=== PATIENT | female | born 1955 | race Caucasian/White ===

== ENCOUNTER 2019-09-08 08:51 | Emergency (ER) | payer OTHER, SELFPAY ==
--- NOTE | ~2019-09-08 | XR_ITS ---
EXAMINATION: XR chest 2V DATE: 09/08/2019 09:40 INDICATION: Cough. TECHNIQUE: Frontal and lateral views of the chest were obtained on 3 radiographs. COMPARISON: Chest 2 views 10/20/2014 FINDINGS: The chest demonstrates clear lungs without pneumonia, pleural effusion, or pneumothorax. Th e heart size is normal. IMPRESSION: 1. No acute cardiopulmonary disease. Reviewed, dictated and finalized at location A. MASTER
[2019-09-08 09:12] VITALS: BP 164/74; PULSE 74; RESP 20; TEMP 36.3; O2SAT 95
--- NOTE | 2019-09-08 09:36 | ED.URI ---
HPI - URI/Sore Throat General Chief Complaint: Upper Respiratory Infection Stated Complaint: Cold/Flu symptoms Time Seen by Provider: 09/08/19 09:41 Source: patient Related Data Home Medications Medication Instructions Recorded Confirmed aspirin [Aspir-81] 81 mg PO DAILY 09/08/19 09/08/19 celecoxib mg 09/08/19 hydroxyzine HCl 25 mg PO QID PRN 09/08/19 09/08/19 lisinopril-hydrochlorothiazide tablet 09/08/19 metoprolol succinate PO 09/08/19 potassium chloride meq 09/08/19 venlafaxine mg PO 09/08/19 Allergies Allergy/AdvReac Type Severity Reaction Status Date / Time codeine AdvReac Unknown Nausea and Verified 09/08/19 09:22 Vomiting morphine AdvReac Unknown Nausea and Verified 09/08/19 09:22 Vomiting PMFSH Comments At time of signature, agree with nursing past medical, surgical, social and family history. There is no relevant family history pertinent to the presenting complaint Course Vital Signs Vital signs: Vital Signs Temperature 36.3 C L 09/08/19 09:12 Pulse Rate 74 09/08/19 09:12 Respiratory Rate 20 09/08/19 09:12 Blood Pressure 164/74 H 09/08/19 09:12 Pulse Oximetry 95 09/08/19 09:12 Temperature 36.3 C L 09/08/19 09:12 Pulse Rate 74 09/08/19 09:12 Respiratory Rate 20 09/08/19 09:12 Blood Pressure 164/74 H 09/08/19 09:12 Pulse Oximetry 95 09/08/19 09:12 MDM - URI/Sore Throat Differential Diagnosis Differential diagnosis: Likely upper respiratory infection, croup, otitis media, sinusitis, viral infection, bronchitis, influenza, pharyngitis and other Critical Care Time Critical Care Time Critical Care Time: No Discharge Plan Discharge Clinical Impression: Viral infection, Bronchitis Upper respiratory infection Qualifiers: URI type: unspecified viral URI Qualified Code(s): J06.9 - Acute upper respiratory infection, unspecified Patient Disposition: Home, Self-Care Condition: Stable Instructions: Antibiotic Form Prescriptions: New benzonatate [Tessalon Perles] 100 mg capsule 100 mg PO TID 5 Days Qty: 15 RF: 0 methylprednisolone [Medrol (Caio)] 4 mg tablets,dose pack See Rx Instructions .ROUTE .COMPLEX Qty: 21 RF: 0 azithromycin 250 mg tablet See Rx Instructions .ROUTE .COMPLEX Qty: 6 RF: 0 albuterol sulfate 2.5 mg /3 mL (0.083 %) solution for nebulization 2.5 mg INHALATION Q4H PRN (Reason: shortness of breath or wheezing) Qty: 75 RF: 0 No Action celecoxib 200 mg capsule RF: 0 potassium chloride 10 mEq capsule, extended release RF: 0 metoprolol succinate 100 mg tablet extended release 24 hr PO RF: 0 aspirin [Aspir-81] 81 mg Tablet,Delayed Release (Dr/Ec) 81 mg PO DAILY RF: 0 lisinopril-hydrochlorothiazide 20-25 mg tablet RF: 0 hydroxyzine HCl 25 mg Tablet 25 mg PO QID PRN (Reason: Itching) RF: 0 venlafaxine 225 mg tablet extended release 24hr PO RF: 0 Follow-up/Referrals: Kelly,Ashu Moran MD [Primary Care Provider] - Time of Disposition: 10:00
--- NOTE | 2019-09-08 09:39 | ED.URI ---
HPI - URI/Sore Throat General Chief Complaint: Upper Respiratory Infection Stated Complaint: Cold/Flu symptoms Time Seen by Provider: 09/08/19 09:41 Source: patient History of Present Illness HPI Narrative: Patient here with cough this been going on for the past 6 weeks. Since May 2019. Patient has been evaluated by her primary care provider and given Keflex and and Hailer. Patient states she has had not much improvement since then and continues to have a dry nonproductive cough. No shortness of breath no chest pain normally healthy individual non-smoker . Patient states she saw her primary care provider 2 weeks ago and was given Keflex which she has finished. Patient states she does have a history of asthma and uses her inhaler as prescribed. Patient reports taking Zyrtec daily and using her inhaler. Patient states that the Z-Caio does only thing that would help her get over this upper respiratory infection. Patient states she has taken them in the past and does fine with a Z-Caio and gets better faster. Related Data Home Medications Medication Instructions Recorded Confirmed aspirin [Aspir-81] 81 mg PO DAILY 09/08/19 09/08/19 celecoxib mg 09/08/19 hydroxyzine HCl 25 mg PO QID PRN 09/08/19 09/08/19 lisinopril-hydrochlorothiazide tablet 09/08/19 metoprolol succinate PO 09/08/19 potassium chloride meq 09/08/19 venlafaxine mg PO 09/08/19 Allergies Allergy/AdvReac Type Severity Reaction Status Date / Time codeine AdvReac Unknown Nausea and Verified 09/08/19 09:22 Vomiting morphine AdvReac Unknown Nausea and Verified 09/08/19 09:22 Vomiting Review of Systems Review of Systems: Narrative: CONSTITUTIONAL: Denies fever, chills, or sweats. EYES: Denies visual changes, redness, or discharge. ENT: Denies , congestion, sore throat, or otalgia. CARDIOVASCULAR: Denies chest pain, palpitations, or edema. RESPIRATORY: Denies dyspnea. Nonproductive cough -If you have any worsening of symptoms or any other concerns please go to the ED immediately. GASTROINTESTINAL: Denies abdominal pain, nausea, vomiting, or diarrhea. GENITOURINARY: Denies dysuria or hematuria. SKIN: Denies rash or itching. MUSCULOSKELETAL: Denies back pain, joint pain, or myalgia. NEUROLOGIC: Denies headache, numbness, or weakness. PSYCHIATRIC: Denies anxiety or depression. Exam Narrative: Exam Narrative: The patient is a well-developed, well-nourished in no acute distress. SKIN: Skin is warm and dry without erythema, swelling or exudate. There is good turgor. No tenting. HEAD: Atraumatic. Normocephalic. No temporal or scalp tenderness. EYES: Moist and bright. Sclera and conjunctivae normal. No discharge. PERRLA. Extraocular motions intact. Gross visual acuity intact. EARS: Pinna is normal shape and contour. Clear external auditory canals. TM pearly saravia with good cone of light, no erythema or suppuration. Bilateral cerumen noted no gross hearing deficit. NOSE: pink, moist mucosa with good air movement. Clear rhinorrhea without nasal flaring. Septum midline. Mouth: moist mucous membranes. THROAT; mild erythema noted to posterior oropharynx with moderate postnasal drainage. Without exudate or ulceration.. Uvula midline. Normal movement of soft palate. NECK: Supple and nontender with full range of motion without discomfort. No meningeal signs. LUNGS: Equal and bilateral breath sounds without wheezes, rales or rhonchi. CHEST: The chest wall is without retractions or use of accessory muscles. HEART: Has a regular rate and rhythm without murmur, gallops, click or rub. ABDOMEN: Soft, nontender with positive active bowel sounds. No rebound tenderness. EXTREMITIES: Without cyanosis, clubbing or edema. Equal 2+ distal pulses and 2 second capillary refill noted. NEUROLOGIC: alert, active, . The patient moves all extremities with normal muscle strength. Normal muscle tone is noted. Normal coordination is noted. NO focal neurological findings noted. Course Vital
== END 2019-09-08 10:05 | disposition home or self-care (01) ==
PROVIDERS: Emergency Provider Nurse Practitioner Family; PCP Internal Medicine
DX: B34.9 Viral infection, unspecified (principal); J40 Bronchitis, not specified as acute or chronic; J06.9 Acute upper respiratory infection, unspecified; J45.909 Unspecified asthma, uncomplicated
CPT/HCPCS: 71046; 99213; G0463

== ENCOUNTER 2019-10-27 12:50 | Emergency (ER) | payer OTHER, SELFPAY ==
--- NOTE | ~2019-10-27 | XR_ITS ---
EXAMINATION: XR chest 2V EXAM DATE: 10/27/2019 13:45 INDICATION: COVID 19 symptoms. Chest tightness, shortness of breath. TECHNIQUE: Frontal and lateral projections of the chest obtained and reviewed. Comparison is made to prior examination from 09/08/2019. FINDINGS: The lungs are clear. There are no pleural effusions. The cardiomediastinal silhouette is within normal limits. There is no pneumothorax suspected. The bones and soft tissues are unremarkab le. Azygos fissure. IMPRESSION: No acute cardiopulmonary findings. Reviewed, dictated and finalized at location A.
[2019-10-27 12:56] VITALS: BP 192/82; PULSE 78; RESP 20; TEMP 36.6; O2SAT 100
--- NOTE | 2019-10-27 13:19 | ED.GENADULT ---
HPI - General Adult General Chief complaint: Upper Respiratory Infection Stated complaint: Breathing trouble, coughing Time Seen by Provider: 10/27/19 13:19 Source: patient and RN notes reviewed Mode of arrival: ambulatory Limitations: no limitations History of Present Illness HPI narrative: 63-year-old female presents with complains of dry cough and intermittent shortness of breath for the past 1.5 weeks. Albuterol treatment (last approximately 1.5 hours prior to this visit) and Spiriva daily with some relief. Symptoms increased over the last 48 hours with lung heaviness. History of Asthma. Patient stop taking her blood pressure medications in September due to the Coronavirus. Negra says the news said that her history could make her prone to getting the virus. Dry cough without chest congestion. No rhinorrhea or nasal congestion. Denies sore throat. No high fevers, drooling, neck or throat swelling. No chest pain, wheezing, or shortness of breath. Denies diarrhea, nausea, vomiting, and abdominal pain. Tolerating liquids well. Remains active. Denies headaches, weakness, fatigue, myalgia. Denies recent traveling. Denies concern for COVID-19 or exposures been home since [id number] order except for essential household needs and return home. Some parts of this dictation were generated by voice recognition software and may contain typographical and/or grammatical inaccuracies. Related Data Home Medications Medication Instructions Recorded Confirmed aspirin [Aspir-81] 81 mg PO DAILY 09/08/19 09/08/19 celecoxib mg 09/08/19 hydroxyzine HCl 25 mg PO QID PRN 09/08/19 09/08/19 lisinopril-hydrochlorothiazide tablet 09/08/19 metoprolol succinate PO 09/08/19 potassium chloride meq 09/08/19 venlafaxine mg PO 09/08/19 Allergies Allergy/AdvReac Type Severity Reaction Status Date / Time codeine AdvReac Unknown Nausea and Verified 09/08/19 09:22 Vomiting morphine AdvReac Unknown Nausea and Verified 09/08/19 09:22 Vomiting Review of Systems Review of Systems: Narrative: CONSTITUTIONAL: Denies fever. Complains of sweats, chills, fatigue. EYES: Denies visual changes, redness, discharge. ENT: Complains of congestion. Denies rhinorrhea, sore throat, otalgia. CARDIOVASCULAR: Denies chest pain, palpitations, edema. RESPIRATORY: Denies chest congestion,wheezing. Complains of dry cough, intermittent dyspnea. GASTROINTESTINAL: Denies abdominal pain, nausea, vomiting, diarrhea. GENITOURINARY: Denies dysuria, hematuria, abnormal discharge. SKIN: Denies rash or itching. MUSCULOSKELETAL: Denies acute back pain, joint pain, or myalgia. NEUROLOGIC: Denies numbness or focal weakness. PSYCHIATRIC: Denies anxiety or depression. All other systems reviewed are negative, except as documented in HPI and below. [facility] Past Medical History Medical History (Updated 10/28/19 @ 16:20 by WAGNER Joe) Asthma Hypertension Menopause Myocardial infarction Surgical History Surgical History (Updated 10/28/19 @ 16:17 by WAGNER Joe) History of cardiac radiofrequency ablation History of cholecystectomy History of hysterectomy Family History Family History (Updated 10/28/19 @ 16:17 by WAGNER Joe) Mother Hypertension Social History Social History (Updated 10/28/19 @ 16:19 by WAGNER Joe) Smoking status: Never smoker Tobacco type: cigarettes Second hand tobacco smoke exposure: No Substance use: never Living arrangements: with family Gender identity (if verbalized by the patient): Female Comments At time of signature, agree with nurse past medical, surgical, social, and family history. There is no relevant family history pertinent to the presenting complaint. Exam Narrative: Exam Narrative: GENERAL: This is a well-nourished, well-developed patient, in no apparent distress. Talks in full sentences and ambulates with steady gait without dyspnea. HEAD: normo
[2019-10-27] MEDS: IPRATROPIUM BR 0.02% INH SOLN 0.5 MG/2.5 ML VIAL INHALATION (13:46)
[2019-10-27] MEDS: ALBUTEROL SULFATE NEB 2.5 MG/3 ML INH INHALATION (13:47)
== END 2019-10-27 14:51 | disposition home or self-care (01) ==
PROVIDERS: Emergency Provider Nurse Practitioner Family; PCP Internal Medicine
DX: J45.901 Unspecified asthma with (acute) exacerbation (principal); I10 Essential (primary) hypertension; I25.2 Old myocardial infarction
CPT/HCPCS: 71046; 94640; 99213; G0463

== ENCOUNTER 2021-01-22 12:18 | Emergency (ER) | payer MEDICARE, SELFPAY ==
--- NOTE | ~2021-01-22 | XR_ITS ---
EXAMINATION: XR chest 2V EXAM DATE: 01/22/2021 13:43 INDICATION: Shortness of breath and asthma. TECHNIQUE: Frontal and lateral projections of the chest obtained and reviewed. Comparison is made to prior examination from 10/27/2019. FINDINGS: Azygos fissure. The lungs are clear. There are no pleural effusions. The cardiomediastin al silhouette is within normal limits. There is no pneumothorax suspected. Mild lower thoracic dext roscoliosis. IMPRESSION: No acute cardiopulmonary findings. Reviewed, dictated and finalized at location B.
[2021-01-22 12:29] VITALS: BP 157/75; PULSE 94; RESP 20; TEMP 36.6; O2SAT 98
--- NOTE | 2021-01-22 13:32 | ED.SOB ---
HPI - SOB/Dyspnea General Chief Complaint: Shortness of Breath/Dyspnea Stated Complaint: Shortness of breath Time Seen by Provider: 01/22/21 13:10 Source: patient and RN notes reviewed Mode of arrival: ambulatory Limitations: no limitations History of Present Illness HPI Narrative: 65 year old female who presents ambulatory to [facility] care with complaints of one day history of shortness of breath, tightness to chest with taking a deep breath, bilateral ear pressure, swelling in throat, post nasal drainage and dry cough. Patient states that she has used her Albuterol inhaler but with no improvement in her breathing. Patient denies any chest pain, nausea, diaphoresis, or any pain to arm, jaw or back. Patient states that she has history of asthma, pneumonia and bronchitis.Patient states that she has not used nebulizer or Spiriva inhaler. Patient has not had COVID vaccinations. MD elicited complaint: shortness of breath Pertinent past history: asthma, pneumonia and other (bronchitis) Onset (ago): day(s) (1) Timing: constant Severity: moderate Exacerbating factors: exertion and inspiration Relieving factors: nothing Known history of: asthma Associated symptoms: cough and other (ear pressure, post nasal drainage, states throat feels swollen) Treatment prior to arrival: other (inhaler) Related Data Home oxygen amount: none Home Medications Medication Instructions Recorded Confirmed celecoxib 400 mg PO DAILY 09/08/19 01/22/21 hydroxyzine HCl 25 mg PO QID PRN 09/08/19 01/22/21 lisinopril-hydrochlorothiazide 1 tablet PO DAILY 09/08/19 01/22/21 metoprolol succinate 100 mg PO DAILY 09/08/19 01/22/21 potassium chloride 10 meq PO BID 09/08/19 01/22/21 aspirin [Aspirin Childrens] 81 mg PO DAILY 01/22/21 01/22/21 ergocalciferol (vitamin D2) 50,000 unit PO WEEKLY 01/22/21 01/22/21 [Vitamin D2] phentermine 30 mg PO DAILY 01/22/21 01/22/21 tiotropium bromide [Spiriva with 1 cap INHALATION DAILY PRN 01/22/21 01/22/21 HandiHaler] Allergies Allergy/AdvReac Type Severity Reaction Status Date / Time codeine AdvReac Unknown Nausea and Verified 01/22/21 13:26 Vomiting morphine AdvReac Unknown Nausea and Verified 01/22/21 13:26 Vomiting Review of Systems Review of Systems: Narrative: CONSTITUTIONAL: Denies fever, chills, or sweats. EYES: Denies visual changes, redness, or discharge. ENT: Positive rhinorrhea, congestion, sore throat, bilateral ear pressure CARDIOVASCULAR: Denies chest pain, palpitations, or edema. RESPIRATORY: Positive for cough or dyspnea. GASTROINTESTINAL: Denies abdominal pain, nausea, vomiting, or diarrhea. GENITOURINARY: Denies dysuria or hematuria. SKIN: Denies rash or itching. MUSCULOSKELETAL: Denies back pain, joint pain, or myalgia. NEUROLOGIC: Denies headache, numbness, or weakness. PSYCHIATRIC: Positive anxiety or depression. All systems reviewed & are unremarkable except as noted in HPI and below PMFSH Past Medical History Medical History (Updated 01/23/21 @ 10:53 by Nica Marrero NP) Anxiety and depression Arthritis Asthma Bronchitis Hypertension Menopause Myocardial infarction Sleep apnea Surgical History Surgical History History of cardiac radiofrequency ablation History of cholecystectomy History of hysterectomy Family History Family History (Updated 01/23/21 @ 10:02 by Nica Marrero NP) Mother Hypertension Acute myocardial infarction Heart disease COPD (chronic obstructive pulmonary disease) Father COPD (chronic obstructive pulmonary disease) Social History Social History (Updated 01/23/21 @ 10:00 by Nica Marrero NP) Smoking status: Never smoker Tobacco type: cigarettes Second hand tobacco smoke exposure: No Alcohol intake: never Substance use: never Living arrangements: with family Gender identity (if verbalized by the patient): Female Comments At time of signature, agree with gerard
[2021-01-22 14:00] VITALS: PULSE 90; RESP 20; O2SAT 98
[2021-01-22] MEDS: IPRATROPIUM BR 0.02% INH SOLN 0.5 MG/2.5 ML VIAL INHALATION (14:00)
[2021-01-22] MEDS: ALBUTEROL SULFATE NEB 2.5 MG/3 ML INH INHALATION (14:00)
[2021-01-22 14:30] VITALS: PULSE 96; RESP 20; O2SAT 98
[2021-01-23 19:11] LABS: SARS-CoV-2 RNA PCR Negative
== END 2021-01-22 14:45 | disposition home or self-care (01) ==
PROVIDERS: Emergency Provider Registered Nurse; PCP Internal Medicine
DX: J06.9 Acute upper respiratory infection, unspecified (principal); J45.41 Moderate persistent asthma with (acute) exacerbation; Z20.822 Contact with and (suspected) exposure to COVID-19; F41.9 Anxiety disorder, unspecified; M19.90 Unspecified osteoarthritis, unspecified site; I10 Essential (primary) hypertension; I25.2 Old myocardial infarction; G47.30 Sleep apnea, unspecified
CPT/HCPCS: 71046; 87081; 87426; 87804; 87880; 94640; 99213; C9803; G0463; U0003; U0005

== ENCOUNTER 2021-11-10 11:19 | Emergency (ER) | payer MEDICARE, SELFPAY ==
[2021-11-10 11:20] VITALS: BP 148/77; PULSE 57; RESP 20; TEMP 36.5; O2SAT 98
--- NOTE | 2021-11-10 11:25 | ED.URI ---
HPI - URI/Sore Throat General Chief Complaint: Upper Respiratory Infection Stated Complaint: SOre Throat/Ear Pain Time Seen by Provider: 11/10/21 11:19 Source: patient, family and RN notes reviewed History of Present Illness HPI Narrative: Patient is 65-year-old female presents the urgent care with complaints of sore throat and ear pain that started today. Patient also reports of some congestion and drainage. Patient has not taken anything [id number] for her symptoms. Denies of any fevers or known exposures. No other acute complaints. No acute distress noted. Patient aware of the plan of care. Some parts of this dictation were generated by voice recognition software and may contain typographical and/or grammatical inaccuracies. Related Data Home Medications Medication Instructions Recorded Confirmed celecoxib 400 mg PO DAILY 09/08/19 11/10/21 lisinopril-hydrochlorothiazide 1 tablet PO DAILY 09/08/19 11/10/21 metoprolol succinate 100 mg PO DAILY 09/08/19 11/10/21 potassium chloride 10 meq PO BID 09/08/19 11/10/21 tiotropium bromide [Spiriva with 1 cap INHALATION DAILY PRN 01/22/21 11/10/21 HandiHaler] aspirin [Aspirin Low Dose] 81 mg PO DAILY 11/10/21 11/10/21 cetirizine 10 mg PO DAILY 11/10/21 11/10/21 ergocalciferol (vitamin D2) 1,250 mcg PO WEEKLY 11/10/21 11/10/21 Allergies Allergy/AdvReac Type Severity Reaction Status Date / Time codeine AdvReac Unknown Nausea and Verified 11/10/21 11:52 Vomiting morphine AdvReac Unknown Nausea and Verified 11/10/21 11:52 Vomiting [facility] Past Medical History Medical History (Updated 11/10/21 @ 11:59 by WAGNER Garcia) Anxiety and depression Arthritis Asthma Bronchitis Hypertension Menopause Myocardial infarction Sleep apnea Surgical History Surgical History History of cardiac radiofrequency ablation History of cholecystectomy History of hysterectomy Family History Family History (Updated 01/23/21 @ 10:02 by Nica Marrero NP) Mother Hypertension Acute myocardial infarction Heart disease COPD (chronic obstructive pulmonary disease) Father COPD (chronic obstructive pulmonary disease) Social History Social History (Updated 01/23/21 @ 10:00 by Nica Marrero NP) Smoking status: Never smoker Tobacco type: cigarettes Second hand tobacco smoke exposure: No Alcohol intake: never Substance use: never Gender identity (if verbalized by the patient): Female Exam Narrative: GENERAL: This is a well-nourished, well-developed patient, in no apparent distress. HEAD: normocephalic, atraumatic. EYES: PERRL. Sclera clear/white. Vision is grossly intact. EARS: External ears normal, auditory canals clear and without drainage, TMs normal without perforation. Hearing grossly intact. NOSE: External nose normal with no obvious nasal discharge, nares without redness, clear to yellow rhinorrhea. THROAT: Mucous membranes moist reviewed moderate postnasal drainage with mild erythema NECK: Neck supple, non-tender without lymphadenopathy CARDIOVASCULAR: Regular rate and rhythm without murmurs, gallops, or rubs. RESPIRATORY: Clear to auscultation. Breath sounds equal bilaterally. No wheezes, rales, or rhonchi. SKIN: warm, intact with no suspicious lesions or rash, good texture and turgor. NEURO: awake, alert, and oriented to person, place and time. There were no obvious focal neurologic abnormalities. EXTREMITIES: No clubbing, cyanosis, or edema. Course Course Level of Care: Express Care Visit Vital Signs Vital signs: Vital Signs Temperature 97.7 F 11/10/21 11:20 Pulse Rate 57 L 11/10/21 11:20 Respiratory Rate 20 11/10/21 11:20 Blood Pressure 148/77 H 11/10/21 11:20 Pulse Oximetry 98 11/10/21 11:20 Temperature 97.7 F 11/10/21 11:20 Pulse Rate 57 L 11/10/21 11:20 Respiratory Rate 20 11/10/21 11:20 Blood Pressure 148/77 H 11/10/21 11:20 Pulse
== END 2021-11-10 12:02 | disposition home or self-care (01) ==
PROVIDERS: Emergency Provider Nurse Practitioner Family
DX: J00 Acute nasopharyngitis [common cold] (principal); I10 Essential (primary) hypertension; I25.2 Old myocardial infarction; Z79.82 Long term (current) use of aspirin
CPT/HCPCS: 87081; 87804; 87880; 99213; G0463

== ENCOUNTER 2022-04-06 11:54 | Emergency (ER) | payer MEDICARE, SELFPAY ==
--- NOTE | ~2022-04-06 | XR_ITS ---
EXAMINATION: XR chest 2V DATE: 04/06/2022 12:20 INDICATION: Cough. TECHNIQUE: Frontal and lateral views of the chest were obtained. COMPARISON: Chest 2 views 01/22/2021 FINDINGS: The chest demonstrates clear lungs without pneumonia, pleural effusion, or pneumothorax. Th e heart size is normal. IMPRESSION: 1. No acute cardiopulmonary disease. Reviewed, dictated and finalized at location A.
[2022-04-06 12:02] VITALS: BP 140/65; PULSE 75; RESP 16; TEMP 36.8; O2SAT 100
--- NOTE | 2022-04-06 12:04 | ED.URI ---
HPI - URI/Sore Throat General Chief Complaint: Upper Respiratory Infection Stated Complaint: cough and respiratory issues Time Seen by Provider: 04/06/22 12:04 Source: patient and RN notes reviewed History of Present Illness HPI Narrative: Patient is 66-year-old female who presents the urgent care with complaints of a cough for the last 3 weeks. Patient states that is intermittently productive and she is now experiencing some fatigue. Patient denies any chest pain but is complaining of shortness of breath. Patient states she does have a history of pneumonia but denies of any recent fevers, nausea or vomiting. Denies of any audible wheezing. Denies of any ill exposures. Patient has been taking Zyrtec [id number] for her symptoms. No other acute complaints. No acute distress noted. Patient aware of the plan of care. Some parts of this dictation were generated by voice recognition software and may contain typographical and/or grammatical inaccuracies. Related Data Home Medications Medication Instructions Recorded Confirmed metoprolol succinate 100 mg 100 mg PO DAILY 09/08/19 04/06/22 tablet,extended release 24 hr potassium chloride 10 mEq 10 meq PO BID 09/08/19 04/06/22 capsule,extended release tiotropium bromide 18 mcg capsule 1 cap inhalation DAILY PRN sob 01/22/21 04/06/22 with inhalation device (Spiriva with HandiHaler) aspirin 81 mg tablet,delayed 81 mg PO DAILY 11/10/21 04/06/22 release (Di Low Dose Aspirin) cetirizine 10 mg tablet 10 mg PO DAILY 11/10/21 04/06/22 ergocalciferol (vitamin D2) 1,250 1,250 mcg PO [id number] 11/10/21 04/06/22 mcg (50,000 unit) capsule celecoxib 400 mg capsule 400 mg PO DAILY 04/06/22 04/06/22 clotrimazole-betamethasone 1 1 applic topical BID 04/06/22 04/06/22 %-0.05 % topical cream letrozole 2.5 mg tablet 2.5 mg PO DAILY 04/06/22 04/06/22 losartan 100 1 tablet PO DAILY 04/06/22 04/06/22 mg-hydrochlorothiazide 25 mg tablet Allergies Allergy/AdvReac Type Severity Reaction Status Date / Time codeine AdvReac Unknown Nausea and Verified 04/06/22 12:18 Vomiting morphine AdvReac Unknown Nausea and Verified 04/06/22 12:18 Vomiting Review of Systems Review of Systems: CONSTITUTIONAL: Denies fever, chills, or sweats. Reports of fatigue EYES: Denies visual changes, redness, or discharge. ENT: Denies rhinorrhea, congestion, sore throat, or otalgia. CARDIOVASCULAR: Denies chest pain, palpitations, or edema. RESPIRATORY: Reports of cough and dyspnea GASTROINTESTINAL: Denies abdominal pain, nausea, vomiting, or diarrhea. GENITOURINARY: Denies dysuria or hematuria. SKIN: Denies rash or itching. MUSCULOSKELETAL: Denies back pain, joint pain, or myalgia. NEUROLOGIC: Denies headache, numbness, or weakness. All other systems reviewed are negative, except as documented in HPI. [facility] Past Medical History Medical History (Updated 04/06/22 @ 12:38 by WAGNER Garcia) Anxiety and depression Arthritis Asthma Bronchitis Hypertension Menopause Myocardial infarction Sleep apnea Surgical History Surgical History History of cardiac radiofrequency ablation History of cholecystectomy History of hysterectomy Family History Family History (Updated 01/23/21 @ 10:02 by Nica Marrero NP) Mother Hypertension Acute myocardial infarction Heart disease COPD (chronic obstructive pulmonary disease) Father COPD (chronic obstructive pulmonary disease) Social History Social History (Updated 01/23/21 @ 10:00 by Nica Marrero NP) Smoking status: Never smoker Tobacco type: cigarettes Second hand tobacco smoke exposure: No Alcohol intake: never Substance use: never Gender identity (if verbalized by the patient): Female Comments At the time of my signature, I reviewed and agree with the nursing past medical, surgical, social, and family history. There is no relevant family his
== END 2022-04-06 12:41 | disposition home or self-care (01) ==
PROVIDERS: Emergency Provider Nurse Practitioner Family; PCP Internal Medicine
DX: J06.9 Acute upper respiratory infection, unspecified (principal); R05.9 Cough, unspecified; J45.909 Unspecified asthma, uncomplicated; M19.90 Unspecified osteoarthritis, unspecified site; I10 Essential (primary) hypertension; I25.2 Old myocardial infarction; G47.30 Sleep apnea, unspecified; Z79.82 Long term (current) use of aspirin
CPT/HCPCS: 71046; 99213; G0463

== ENCOUNTER 2022-05-10 12:51 | Emergency (ER) | payer MEDICARE, SELFPAY ==
[2022-05-10 13:28] VITALS: BP 142/73; PULSE 87; RESP 18; TEMP 36.6; O2SAT 97
--- NOTE | 2022-05-10 14:21 | ED.URI ---
HPI - URI/Sore Throat General Chief Complaint: Upper Respiratory Infection Stated Complaint: lungs hurt cough headache ears Time Seen by Provider: 05/10/22 13:55 Source: patient, RN notes reviewed and old records reviewed Mode of arrival: ambulatory Limitations: no limitations History of Present Illness HPI Narrative: 66-year-old female who presents to [facility] with complaints of increased cough, some nasal congestion and drainage, and headache which started this morning. Reports that she was at a alliance party this weekend and found out that someone who was there tests positive for COVID, Patient has history of asthma and used her nebulizer this morning and her other inhaler and nasal spray because of increased symptoms. MD elicited complaint: cough Pertinent past history: asthma Onset (ago): day(s) (1) Pain scale (0-10): 6 Able to tolerate fluids by mouth: Yes Treatments prior to arrival: other (inhalers, zyrtec and also Tylenol) Related Data Home Medications Medication Instructions Recorded Confirmed metoprolol succinate 100 mg 100 mg PO DAILY 09/08/19 05/10/22 tablet,extended release 24 hr potassium chloride 10 mEq 10 meq PO BID 09/08/19 05/10/22 capsule,extended release tiotropium bromide 18 mcg capsule 1 cap inhalation DAILY PRN sob 01/22/21 05/10/22 with inhalation device (Spiriva with HandiHaler) aspirin 81 mg tablet,delayed 81 mg PO DAILY 11/10/21 05/10/22 release (Di Low Dose Aspirin) cetirizine 10 mg tablet 10 mg PO DAILY 11/10/21 05/10/22 ergocalciferol (vitamin D2) 1,250 1,250 mcg PO [id number] 11/10/21 05/10/22 mcg (50,000 unit) capsule celecoxib 400 mg capsule 400 mg PO DAILY 04/06/22 05/10/22 clotrimazole-betamethasone 1 1 applic topical BID 04/06/22 05/10/22 %-0.05 % topical cream letrozole 2.5 mg tablet 2.5 mg PO DAILY 04/06/22 05/10/22 losartan 100 1 tablet PO DAILY 04/06/22 05/10/22 mg-hydrochlorothiazide 25 mg tablet Allergies Allergy/AdvReac Type Severity Reaction Status Date / Time codeine AdvReac Unknown Nausea and Verified 05/10/22 13:36 Vomiting morphine AdvReac Unknown Nausea and Verified 05/10/22 13:36 Vomiting Review of Systems Review of Systems: CONSTITUTIONAL: Reports malaise, no chills, sweats, or fever. EYES: Denies visual changes, redness, or discharge. ENT: Reports rhinorrhea, congestion, sinus pain, otalgia no sore throat. CARDIOVASCULAR: Denies chest pain, palpitations, or edema. RESPIRATORY: Reports cough.? Denies acute dyspnea. GASTROINTESTINAL: Denies abdominal pain, nausea, vomiting, diarrhea SKIN: Denies rash or itching. MUSCULOSKELETAL: Denies myalgia. NEUROLOGIC:Reports headache. All systems reviewed & are unremarkable except as noted in HPI and below PMFSH Past Medical History Medical History (Updated 05/11/22 @ 00:00 by Veronica Gutierrez) Anxiety and depression Arthritis Asthma Bronchitis Hypertension Menopause Myocardial infarction Sleep apnea Surgical History Surgical History History of cardiac radiofrequency ablation History of cholecystectomy History of hysterectomy Family History Family History (Updated 01/23/21 @ 10:02 by Nica Marrero NP) Mother Hypertension Acute myocardial infarction Heart disease COPD (chronic obstructive pulmonary disease) Father COPD (chronic obstructive pulmonary disease) Social History Social History (Updated 01/23/21 @ 10:00 by Nica Marrero NP) Smoking status: Never smoker Tobacco type: cigarettes Second hand tobacco smoke exposure: No Alcohol intake: never Substance use: never Gender identity (if verbalized by the patient): Female Comments At time of signature, agree with nursing past medical, surgical, social and family history. There is no relevant family history pertinent to the presenting complaint Exam Narrative: GENERAL: Well-appearing, well-nourished, and in no acute distre
--- NOTE | 2022-05-10 15:09 | ED.URI ---
HPI - URI/Sore Throat General Chief Complaint: Upper Respiratory Infection Stated Complaint: lungs hurt cough headache ears Time Seen by Provider: 05/10/22 13:55 Source: patient, RN notes reviewed and old records reviewed Mode of arrival: ambulatory Limitations: no limitations Related Data Home Medications Medication Instructions Recorded Confirmed metoprolol succinate 100 mg 100 mg PO DAILY 09/08/19 05/10/22 tablet,extended release 24 hr potassium chloride 10 mEq 10 meq PO BID 09/08/19 05/10/22 capsule,extended release tiotropium bromide 18 mcg capsule 1 cap inhalation DAILY PRN sob 01/22/21 05/10/22 with inhalation device (Spiriva with HandiHaler) aspirin 81 mg tablet,delayed 81 mg PO DAILY 11/10/21 05/10/22 release (Di Low Dose Aspirin) cetirizine 10 mg tablet 10 mg PO DAILY 11/10/21 05/10/22 ergocalciferol (vitamin D2) 1,250 1,250 mcg PO [id number] 11/10/21 05/10/22 mcg (50,000 unit) capsule celecoxib 400 mg capsule 400 mg PO DAILY 04/06/22 05/10/22 clotrimazole-betamethasone 1 1 applic topical BID 04/06/22 05/10/22 %-0.05 % topical cream letrozole 2.5 mg tablet 2.5 mg PO DAILY 04/06/22 05/10/22 losartan 100 1 tablet PO DAILY 04/06/22 05/10/22 mg-hydrochlorothiazide 25 mg tablet Allergies Allergy/AdvReac Type Severity Reaction Status Date / Time codeine AdvReac Unknown Nausea and Verified 05/10/22 13:36 Vomiting morphine AdvReac Unknown Nausea and Verified 05/10/22 13:36 Vomiting [facility] Past Medical History Medical History (Updated 05/11/22 @ 00:00 by Veronica Gutierrez) Anxiety and depression Arthritis Asthma Bronchitis Hypertension Menopause Myocardial infarction Sleep apnea Surgical History Surgical History History of cardiac radiofrequency ablation History of cholecystectomy History of hysterectomy Family History Family History (Updated 01/23/21 @ 10:02 by Nica Marrero NP) Mother Hypertension Acute myocardial infarction Heart disease COPD (chronic obstructive pulmonary disease) Father COPD (chronic obstructive pulmonary disease) Social History Social History (Updated 01/23/21 @ 10:00 by Nica Marrero NP) Smoking status: Never smoker Tobacco type: cigarettes Second hand tobacco smoke exposure: No Alcohol intake: never Substance use: never Gender identity (if verbalized by the patient): Female Course Vital Signs Vital signs: Vital Signs Temperature 36.6 C 05/10/22 13:28 Pulse Rate 87 05/10/22 13:28 Respiratory Rate 18 05/10/22 13:28 Blood Pressure 142/73 H 05/10/22 13:28 Pulse Oximetry 97 05/10/22 13:28 Oxygen Delivery Room Air 05/10/22 13:28 Temperature 36.6 C 05/10/22 13:28 Pulse Rate 87 05/10/22 13:28 Respiratory Rate 18 05/10/22 13:28 Blood Pressure 142/73 H 05/10/22 13:28 Pulse Oximetry 97 05/10/22 13:28 Oxygen Delivery Room Air 05/10/22 13:28 MDM - URI/Sore Throat Lab Data Labs: Lab Results 05/10/22 Range/Units Unknown POC SARS CoV-2 Ag Negative (Negative) Discharge Plan Discharge Clinical Impression: Upper respiratory infection, Cough Patient Disposition: Home, Self-Care Condition: Stable Instructions: Antibiotic Form Additional Instructions: Increase fluids especially juices and water [id number] cough and cold medicine of your choice for your symptoms Tylenol or ibuprofen for any fever or pain continue Zyrtec or Claritin daily Continue your inhaler/nebulizer as directed Steroids as directed--take with food heat to the face 20-30 minutes 4-6 times a day for pain Salt water gargles, throat lozenges or throat sprays as desired Antibiotic as directed--finished the medication If your symptoms persist, change or worsen significantly before you can contact your personal physician then please, without delay, go to the emergency department for further evaluation. Follow-up with
== END 2022-05-10 15:15 | disposition home or self-care (01) ==
PROVIDERS: Emergency Provider Registered Nurse; PCP Internal Medicine
DX: J06.9 Acute upper respiratory infection, unspecified (principal); R05.9 Cough, unspecified; Z20.822 Contact with and (suspected) exposure to COVID-19; M19.90 Unspecified osteoarthritis, unspecified site; J45.909 Unspecified asthma, uncomplicated; I10 Essential (primary) hypertension; G47.30 Sleep apnea, unspecified; Z79.82 Long term (current) use of aspirin
CPT/HCPCS: 87426; 99213; C9803; G0463

== ENCOUNTER 2022-07-08 11:34 | Emergency (ER) | payer MEDICARE, SELFPAY ==
--- NOTE | 2022-07-08 11:37 | ED.URI ---
HPI - URI/Sore Throat General Chief Complaint: Upper Respiratory Infection Stated Complaint: Shortness of Breath/Congestion Time Seen by Provider: 07/08/22 11:37 Source: patient and RN notes reviewed History of Present Illness HPI Narrative: patient is 66-year-old female who presents to urgent care with complaints of congestion, cough, shortness of breath. Patient states it started approximately 4 weeks ago and initially she did have a fever. Denies any fever within the last 24-48 hours. Patient has been using her nebulizer and inhalers. Denies any chest pain. Patient does have a history of asthma. Patient is also been taking Mucinex and Zyrtec. No other acute complaints. No acute distress noted. Patient aware of the plan of care. Some parts of this dictation were generated by voice recognition software and may contain typographical and/or grammatical inaccuracies. Related Data Home Medications Medication Instructions Recorded Confirmed metoprolol succinate 100 mg 100 mg PO DAILY 09/08/19 05/10/22 tablet,extended release 24 hr potassium chloride 10 mEq 10 meq PO BID 09/08/19 05/10/22 capsule,extended release tiotropium bromide 18 mcg capsule 1 cap inhalation DAILY PRN sob 01/22/21 05/10/22 with inhalation device (Spiriva with HandiHaler) aspirin 81 mg tablet,delayed 81 mg PO DAILY 11/10/21 05/10/22 release (Di Low Dose Aspirin) cetirizine 10 mg tablet 10 mg PO DAILY 11/10/21 05/10/22 ergocalciferol (vitamin D2) 1,250 1,250 mcg PO [id number] 11/10/21 05/10/22 mcg (50,000 unit) capsule celecoxib 400 mg capsule 400 mg PO DAILY 04/06/22 05/10/22 clotrimazole-betamethasone 1 1 applic topical BID 04/06/22 05/10/22 %-0.05 % topical cream letrozole 2.5 mg tablet 2.5 mg PO DAILY 04/06/22 05/10/22 losartan 100 1 tablet PO DAILY 04/06/22 05/10/22 mg-hydrochlorothiazide 25 mg tablet Allergies Allergy/AdvReac Type Severity Reaction Status Date / Time codeine AdvReac Unknown Nausea and Verified 05/10/22 13:36 Vomiting morphine AdvReac Unknown Nausea and Verified 05/10/22 13:36 Vomiting Review of Systems Review of Systems: CONSTITUTIONAL: Denies fever, chills, or sweats. EYES: Denies visual changes, redness, or discharge. ENT: Reports of sinus congestion/pressure CARDIOVASCULAR: Denies chest pain, palpitations, or edema. RESPIRATORY: reports a cough with intermittent dyspnea GASTROINTESTINAL: Denies abdominal pain, nausea, vomiting, or diarrhea. GENITOURINARY: Denies dysuria or hematuria. SKIN: Denies rash or itching. MUSCULOSKELETAL: Denies back pain, joint pain, or myalgia. NEUROLOGIC: Denies headache, numbness, or weakness. All other systems reviewed are negative, except as documented in HPI. [facility] Past Medical History Medical History (Updated 07/08/22 @ 12:09 by WAGNER Garcia) Anxiety and depression Arthritis Asthma Bronchitis Hypertension Menopause Myocardial infarction Sleep apnea Surgical History Surgical History History of cardiac radiofrequency ablation History of cholecystectomy History of hysterectomy Family History Family History (Updated 01/23/21 @ 10:02 by Nica Marrero NP) Mother Hypertension Acute myocardial infarction Heart disease COPD (chronic obstructive pulmonary disease) Father COPD (chronic obstructive pulmonary disease) Social History Social History (Updated 01/23/21 @ 10:00 by Nica Marrero NP) Smoking status: Never smoker Tobacco type: cigarettes Second hand tobacco smoke exposure: No Alcohol intake: never Substance use: never Gender identity (if verbalized by the patient): Female Comments At the time of my signature, I reviewed and agree with the nursing past medical, surgical, social, and family history. There is no relevant family history pertinent to the patient complaint. Exam Narrative: GENERAL: This is a well-nourished, well-deve
[2022-07-08 11:40] VITALS: BP 158/75; PULSE 74; RESP 20; TEMP 37; O2SAT 97
== END 2022-07-08 12:11 | disposition home or self-care (01) ==
PROVIDERS: Emergency Provider Nurse Practitioner Family
DX: J40 Bronchitis, not specified as acute or chronic (principal); J32.9 Chronic sinusitis, unspecified; M19.90 Unspecified osteoarthritis, unspecified site; J45.909 Unspecified asthma, uncomplicated; I10 Essential (primary) hypertension; I25.2 Old myocardial infarction; Z79.82 Long term (current) use of aspirin
CPT/HCPCS: 99213; G0463

== ENCOUNTER 2022-11-24 11:02 | Emergency (ER) | payer MEDICARE, SELFPAY ==
--- NOTE | 2022-11-24 11:09 | ED.EYEPROB ---
HPI - Eye Problem General Chief complaint: Eye Problems Stated complaint: Eye Problem Time Seen by Provider: 11/24/22 11:09 Source: patient Mode of arrival: ambulatory Limitations: no limitations History of Present Illness HPI Narrative: 67-year-old female presents with complaint of redness, swelling, irritation, drainage from bilateral eyes. States she woke up with symptoms. Also reports cough, nasal congestion, sinus pressure, postnasal drainage for the past 5 days. Reports history of asthma and symptoms making her feel short of breath. Has been using her albuterol inhaler as prescribed. Afebrile. All systems reviewed and negative except as noted above. Related Data Home Medications Medication Instructions Recorded Confirmed metoprolol succinate 100 mg 100 mg PO DAILY 09/08/19 11/24/22 tablet,extended release 24 hr potassium chloride 10 mEq 10 meq PO BID 09/08/19 11/24/22 capsule,extended release tiotropium bromide 18 mcg capsule 1 cap inhalation DAILY PRN sob 01/22/21 11/24/22 with inhalation device (Spiriva with HandiHaler) aspirin 81 mg tablet,delayed 81 mg PO DAILY 11/10/21 11/24/22 release (Di Low Dose Aspirin) cetirizine 10 mg tablet 10 mg PO DAILY 11/10/21 11/24/22 ergocalciferol (vitamin D2) 1,250 1,250 mcg PO [id number] 11/10/21 11/24/22 mcg (50,000 unit) capsule celecoxib 400 mg capsule 400 mg PO DAILY 04/06/22 11/24/22 letrozole 2.5 mg tablet 2.5 mg PO DAILY 04/06/22 11/24/22 losartan 100 1 tablet PO DAILY 04/06/22 11/24/22 mg-hydrochlorothiazide 25 mg tablet Allergies Allergy/AdvReac Type Severity Reaction Status Date / Time codeine AdvReac Unknown Nausea and Verified 11/24/22 11:20 Vomiting morphine AdvReac Unknown Nausea and Verified 11/24/22 11:20 Vomiting Review of Systems Review of Systems: CONSTITUTIONAL: Denies fever, chills, or sweats. EYES: Denies visual changes. Reports redness, discharge bilateral. ENT: Reports rhinorrhea, congestion, sore throat, bilateral ear pressure. CARDIOVASCULAR: Denies chest pain, palpitations, or edema. RESPIRATORY: Reports cough. Denies dyspnea. GASTROINTESTINAL: Denies abdominal pain, nausea, vomiting, or diarrhea. GENITOURINARY: Denies dysuria or hematuria. SKIN: Denies rash or itching. MUSCULOSKELETAL: Denies back pain, joint pain, or myalgia. NEUROLOGIC: Denies headache, numbness, or weakness. PSYCHIATRIC: Denies anxiety or depression. All other systems reviewed are negative, except as documented in HPI. [facility] Past Medical History Medical History (Updated 11/24/22 @ 11:23 by Ally Hurley NP) Anxiety and depression Arthritis Asthma Bronchitis Hypertension Menopause Myocardial infarction Sleep apnea Surgical History Surgical History History of cardiac radiofrequency ablation History of cholecystectomy History of hysterectomy Family History Family History (Updated 01/23/21 @ 10:02 by Nica Marrero NP) Mother Hypertension Acute myocardial infarction Heart disease COPD (chronic obstructive pulmonary disease) Father COPD (chronic obstructive pulmonary disease) Social History Social History (Updated 01/23/21 @ 10:00 by Nica Marrero NP) Smoking status: Never smoker Tobacco type: cigarettes Second hand tobacco smoke exposure: No Alcohol intake: never Substance use: never Living arrangements: with family Gender identity (if verbalized by the patient): Female Comments At time of signature, agree with nursing past medical, surgical, social and family history. There is no relevant family history pertinent to the presenting complaint. Exam Narrative: GENERAL: This is a well-nourished, well-developed patient, in no apparent distress. HEAD: normocephalic, atraumatic. EYES: PERRL. Significant erythema to sclera and conjunctiva bilaterally with regular drainage. Mild swelling to upper and lower eyelids bilatera
[2022-11-24 11:12] VITALS: BP 137/70; PULSE 64; RESP 18; TEMP 36.3; O2SAT 98
== END 2022-11-24 11:25 | disposition home or self-care (01) ==
PROVIDERS: Emergency Provider Nurse Practitioner Family; PCP Internal Medicine
DX: H10.33 Unspecified acute conjunctivitis, bilateral (principal); J06.9 Acute upper respiratory infection, unspecified; M19.90 Unspecified osteoarthritis, unspecified site; J45.909 Unspecified asthma, uncomplicated; I10 Essential (primary) hypertension; I25.2 Old myocardial infarction; Z79.82 Long term (current) use of aspirin
CPT/HCPCS: 99213; G0463

== ENCOUNTER 2024-05-03 18:34 | Emergency (ER) | payer MEDICARE, SELFPAY ==
[2024-05-03 19:09] VITALS: BP 125/64; PULSE 63; RESP 16; TEMP 36.4; O2SAT 99
[2024-05-03 19:12] VITALS: BP 125/64; PULSE 63; RESP 16; TEMP 36.4; O2SAT 99
--- NOTE | 2024-05-03 19:16 | ED_ITS ---
HPI - Eye Problem General Chief complaint: Eye Problems Stated complaint: Right Eye Time Seen by Provider: 05/03/24 19:17 Source: patient, RN notes reviewed and old records reviewed Mode of arrival: ambulatory Limitations: no limitations History of Present Illness HPI Narrative: 68-year-old female to [facility] with complaint of red area in right since this morning. Patient denies injury, foreign body, recent illness, visual changes , prior history, pain. Patient states she alert again to [facility] because she was nervous about being on Eliquis with these symptoms. patient resting comfortably in exam room in no acute distress. Respirations even and nonlabored. Related Data Home Medications Medication Instructions Recorded Confirmed metoprolol succinate 100 mg 100 mg PO DAILY 09/08/19 05/03/24 tablet,extended release 24 hr potassium chloride 10 mEq 10 meq PO BID 09/08/19 05/03/24 capsule,extended release tiotropium bromide 18 mcg capsule 1 cap inhalation DAILY PRN sob 01/22/21 05/03/24 with inhalation device (Spiriva with HandiHaler) aspirin 81 mg tablet,delayed 81 mg PO DAILY 11/10/21 05/03/24 release (Di Low Dose Aspirin) cetirizine 10 mg tablet 10 mg PO DAILY 11/10/21 05/03/24 ergocalciferol (vitamin D2) 1,250 1,250 mcg PO [id number] 11/10/21 05/03/24 mcg (50,000 unit) capsule celecoxib 400 mg capsule 400 mg PO DAILY 04/06/22 05/03/24 losartan 100 1 tablet PO DAILY 04/06/22 05/03/24 mg-hydrochlorothiazide 25 mg tablet apixaban 5 mg tablet (Eliquis) 5 mg PO BID 05/03/24 05/03/24 losartan 100 mg tablet 100 mg PO DAILY 05/03/24 05/03/24 Allergies Allergy/AdvReac Type Severity Reaction Status Date / Time codeine AdvReac Unknown Nausea and Verified 11/24/22 11:20 Vomiting morphine AdvReac Unknown Nausea and Verified 11/24/22 11:20 Vomiting Review of Systems Review of Systems: All systems reviewed & are unremarkable except as noted in HPI and below Constitutional: Constitutional: Reports no additional constitutional complaints Eyes: Eyes: Reports as per HPI, Denies blurry vision, Denies change in vision, Denies eye discharge, Denies eye pain and Reports other ( Red area to right eye since this morning) ENT: Reports system reviewed and no additional complaints, except as documented Cardiovascular: Cardiovascular: Reports no additional cardiovascular complaints, Denies chest pain and Denies dyspnea Respiratory: Respiratory: Reports no additional respiratory complaints, Denies cough and Denies dyspnea Musculoskeletal: Musculoskeletal: Reports no additional musculoskeletal complaints Neurologic: Reports system reviewed and no additional complaints, except as documented Psychiatric: Psychiatric: Reports no additional psychiatric complaints [facility] Past Medical History Medical History Anxiety and depression Arthritis Asthma Bronchitis Hypertension Menopause Myocardial infarction Sleep apnea Surgical History Surgical History History of cardiac radiofrequency ablation History of cholecystectomy History of hysterectomy Family History Family History Mother Hypertension Acute myocardial infarction Heart disease COPD (chronic obstructive pulmonary disease) Father COPD (chronic obstructive pulmonary disease) Social History Social History Smoking status: Never smoker Tobacco type: cigarettes Second hand tobacco smoke exposure: No Alcohol intake: never Substance use: never Living arrangements: with family Gender identity (if verbalized by the patient): Female Comments At the time of my signature, I reviewed and agree with the nursing past medical, surgical, social, and family history. There is no relevant family history pertinent to the patient complaint. Exam Const: General: cooperative, comfortable, no acute distress, alert and well nourished Nutritional Appearance: well nourished Orientation/consciousness: patient oriented x3 Limitations: no limitations HENMT: Head: normal to inspection Ears: external ears normal Face/Nose/Sinus: Normal external nose present, Normal nares present, normal facial exam, No erythema and No edema Face and sinus: normal facial exam, no erythema and no edema Mouth: Yes Normal oral and palatal mucosa present Eyes: General: appearance normal, both eyes and all related structures Visual Springer: normal visual springer by confrontation Alignment and Position: alignment normal and position normal Periorbital: periorbital findings normal Eyelids: eyelids normal Conjunctivae: conjunctivae normal Sclera: scleral abnormality right hemorrhage Pupils: Equal, round and reactive pupils present, Pupils normal by confrontation and Pupil accommodation reflex normal Neck: Neck: normal visual inspection, full ROM and no meningeal signs Lymphatic: no lymphadenopathy noted and no lymphedema noted Chest: Chest palpation & inspection: normal inspection of the chest Resp: Effort & Inspection: normal respiratory effort and able to speak in complete sentences Auscultation: clear to auscultation bilaterally Cardio: Jugular venous distension: no JVD Rate: regular rate Rhythm: regular rhythm Back/Spine/Pelvis: Cervical Spine: cervical ROM normal Skin: General skin exam: normal color, no rashes or lesions noted and turgor normal Neuro: General: patient oriented x3, gait normal, moves all extremities and no meningeal signs Speech: normal speech Gait exam (Neuro): Normal gait present Extrem: General: normal to inspection, full ROM and capillary refill normal Psych: Appearance: grossly normal and well kempt Course Course Emergency Course: Some parts of this dictation were generated by voice recognition software and may contain typographical and/or grammatical inaccuracies. Level of Care: Express Care Visit Vital Signs Vital signs: Vital Signs Temperature 36.4 C 05/03/24 19:09 Pulse Rate 63 05/03/24 19:09 Respiratory Rate 16 05/03/24 19:09 Blood Pressure 125/64 05/03/24 19:09 Pulse Oximetry 99 05/03/24 19:09 Oxygen Delivery Room Air 05/03/24 19:09 Temperature 36.4 C 05/03/24 19:12 Pulse Rate 63 05/03/24 19:12 Respiratory Rate 16 05/03/24 19:12 Blood Pressure 125/64 05/03/24 19:12 Pulse Oximetry 99 05/03/24 19:12 Oxygen Delivery Room Air 05/03/24 19:12 reviewed MDM - Eye Problem MDM Narrative Medical decision making narrative: 68-year-old female to [facility] with complaint of red area in right since this morning. Patient denies injury, foreign body, recent illness, visual ochoa ges , prior history, pain. Patient states she alert again to [facility] because she was nervous about being on Eliquis with these symptoms. patient resting comfortably in exam room in no acute distress. Respirations even and nonlabored. on exam, subconjunctival hemorrhage noted to right lateral eye. Exam otherwise unremarkable. Patient is sitting comfortably in exam room nontoxic in appearance. Patient appropriate for outpatient treatment and follow-up. Discharge instructions reviewed with patient, as well as provided in writing per nursing staff. The instructions also include specific and strict return/GO TO THE ER as well as f/u information. All questions have been answered, and the patient deny any further questions with discharge and discharge plan. Some parts of this dictation were generated by voice recognition software and may contain typographical and/or grammatical inaccuracies. Differential Diagnosis Differential diagnosis: Likely corneal abrasion, conjunctivitis, acute iritis, hyphema, periorbital cellulitis, subconjunctival hemorrhage, glaucoma, corneal ulcer and ruptured globe Discharge Plan Discharge Clinical Impression: Subconjunctival hemorrhage Patient Disposition: Home, Self-Care Condition: Stable Additional Instructions: As discussed, please call your primary care provider in the morning for a follow-up appointment The blood is typically resorbed over one to two weeks. it is possible that the amount of blood knee seem to be increasing on the 2nd day but this typically means that it is redistributing and being resorbed. New or worsening symptoms go directly to the emergency department Prescriptions: No Action potassium chloride 10 mEq capsule, extended release 10 meq PO BID metoprolol succinate 100 mg tablet extended release 24 hr 100 mg PO DAILY albuterol sulfate 2.5 mg /3 mL (0.083 %) solution for nebulization 2.5 mg INHALATION Q4H PRN (Reason: shortness of breath or wheezing) Qty: 75 0RF ipratropium-albuterol 0.5 mg-3 mg(2.5 mg base)/3 mL solution for nebulization 3 ml inhalation Q6H PRN (Reason: shortness of breath) Qty: 15 0RF tiotropium bromide [Spiriva with HandiHaler] 18 mcg Capsule, W/Inhalation Device 1 cap INHALATION DAILY PRN (Reason: sob) cetirizine 10 mg tablet 10 mg PO DAILY ergocalciferol (vitamin D2) 1,250 mcg (50,000 unit) capsule 1,250 mcg PO [id number] aspirin [Di Low Dose Aspirin] 81 mg Tablet,Delayed Release (Dr/Ec) 81 mg PO DAILY celecoxib 400 mg capsule 400 mg PO DAILY losartan-hydrochlorothiazide 100-25 mg tablet 1 tablet PO DAILY albuterol sulfate 90 mcg/actuation HFA aerosol inhaler 2 puff INHALATION QID PRN (Reason: shortness of breath or wheezing) Qty: 8 0RF benzonatate 200 mg capsule 200 mg PO TID PRN (Reason: cough) Qty: 20 0RF Eliquis 5 mg tablet 5 mg PO BID losartan 100 mg tablet 100 mg PO DAILY Follow-up/Referrals: Kelly,Ashu Moran MD [Primary Care Provider] -
== END 2024-05-03 19:37 | disposition home or self-care (01) ==
PROVIDERS: Emergency Provider Nurse Practitioner Family; PCP Internal Medicine
DX: H11.31 Conjunctival hemorrhage, right eye (principal); M19.90 Unspecified osteoarthritis, unspecified site; J45.909 Unspecified asthma, uncomplicated; I10 Essential (primary) hypertension; I25.2 Old myocardial infarction; Z79.01 Long term (current) use of anticoagulants; Z79.82 Long term (current) use of aspirin
CPT/HCPCS: 99212; G0463

== ENCOUNTER 2024-05-25 12:46 | Emergency (ER) | payer MEDICARE, SELFPAY ==
[2024-05-25 12:50] VITALS: BP 158/79; PULSE 85; RESP 24; TEMP 36.1; O2SAT 98
--- NOTE | 2024-05-25 13:20 | ED.GENADULT ---
HPI - General Adult General Chief complaint: Unspecified Stated complaint: Right Shoulder/Right Knee Pain Time Seen by Provider: 05/25/24 13:32 Source: patient, RN notes reviewed and old records reviewed Mode of arrival: ambulatory Limitations: no limitations History of Present Illness HPI narrative: 68-year-old female presents to the [facility] with complaints of right shoulder, right knee pain. Patient reports arthritis in both. Is scheduled to have a knee injection at the end of the month. Patient is requesting a steroid. Was on a steroid pack on April 17. Patient medical records at [facility]. Discussed risks of repeated steroids especially with a injected steroid coming. Unable to see patient's medical records from [facility]. No affiliation Related Data Home Medications Medication Instructions Recorded Confirmed metoprolol succinate 100 mg 100 mg PO DAILY 09/08/19 05/03/24 tablet,extended release 24 hr potassium chloride 10 mEq 10 meq PO BID 09/08/19 05/03/24 capsule,extended release tiotropium bromide 18 mcg capsule 1 cap inhalation DAILY PRN sob 01/22/21 05/03/24 with inhalation device (Spiriva with HandiHaler) aspirin 81 mg tablet,delayed 81 mg PO DAILY 11/10/21 05/03/24 release (Di Low Dose Aspirin) cetirizine 10 mg tablet 10 mg PO DAILY 11/10/21 05/03/24 ergocalciferol (vitamin D2) 1,250 1,250 mcg PO [id number] 11/10/21 05/03/24 mcg (50,000 unit) capsule losartan 100 1 tablet PO DAILY 04/06/22 05/03/24 mg-hydrochlorothiazide 25 mg tablet apixaban 5 mg tablet (Eliquis) 5 mg PO BID 05/03/24 05/03/24 losartan 100 mg tablet 100 mg PO DAILY 05/03/24 05/03/24 Allergies Allergy/AdvReac Type Severity Reaction Status Date / Time codeine AdvReac Unknown Nausea and Verified 11/24/22 11:20 Vomiting morphine AdvReac Unknown Nausea and Verified 11/24/22 11:20 Vomiting Review of Systems Review of Systems: All systems reviewed & are unremarkable except as noted in HPI and below Constitutional: Constitutional: Reports no additional constitutional complaints ENT: Reports system reviewed and no additional complaints, except as documented Cardiovascular: Cardiovascular: Reports no additional cardiovascular complaints, Denies chest pain and Denies dyspnea Respiratory: Respiratory: Reports no additional respiratory complaints, Denies chest congestion, Denies cough and Denies dyspnea Gastrointestinal: Gastrointestinal: Reports no additional gastrointestinal complaints, Denies abdominal pain, Denies nausea and Denies vomiting Integumentary/Breasts: Skin/Breast: Reports system reviewed and no additional complaints, except as docu [facility] Past Medical History Medical History Anxiety and depression Arthritis Asthma Bronchitis Hypertension Menopause Myocardial infarction Sleep apnea Surgical History Surgical History History of cardiac radiofrequency ablation History of cholecystectomy History of hysterectomy Family History Family History Mother Hypertension Acute myocardial infarction Heart disease COPD (chronic obstructive pulmonary disease) Father COPD (chronic obstructive pulmonary disease) Social History Social History Smoking status: Never smoker Tobacco type: cigarettes Second hand tobacco smoke exposure: No Alcohol intake: never Substance use: never Living arrangements: with family Gender identity (if verbalized by the patient): Female Comments At the time of my signature, I reviewed and agree with the nursing past medical, surgical, social, and family history. There is no relevant family history pertinent to the patient complaint. Exam Const: General: cooperative, healthy appearing, comfortable, no acute distress, well developed, alert and well nourished Nutritional Appearance: well nourished and obese Orientation/consciousness: patient oriented x3 Limitations: no limitations HENMT: Head: normal to inspection Ears: hearing grossly normal bilaterally and external ears normal Face/Nose/Sinus: Normal external nose present, normal facial exam and face symmetric Face and sinus: normal facial exam and face symmetric Eyes: General: appearance normal, both eyes and all related structures Alignment and Position: alignment normal Periorbital: periorbital findings normal Neck: Neck: normal visual inspection, full ROM, no lymphadenopathy and no meningeal signs Chest: Chest palpation & inspection: normal inspection of the chest Resp: Effort & Inspection: normal respiratory effort and able to speak in complete sentences Cardio: Rate: regular rate Skin: General skin exam: normal color and no rashes or lesions noted Lesions: no lesions Rashes: no rashes Wounds: no wounds Neuro: General: patient oriented x3, gait normal, tone normal, moves all extremities and no meningeal signs Cognition (Neuro): normal cognition Speech: normal speech Gait exam (Neuro): Normal gait present Extrem: General: normal to inspection, full ROM, capillary refill normal and normal gait Right upper extremity: shoulder/upper arm tenderness Right lower extremity: knee Details: tenderness Psych: Appearance: grossly normal and well kempt Mental Status: mental status grossly normal Speech and movement: Normal speech and movement present and Clear speech present Affect: normal affect Attitude: cooperative Course Course Level of Care: Express Care Visit Vital Signs Vital signs: Vital Signs Temperature 97 F L 05/25/24 12:50 Pulse Rate 85 05/25/24 12:50 Respiratory Rate 24 H 05/25/24 12:50 Blood Pressure 158/79 H 05/25/24 12:50 Pulse Oximetry 98 05/25/24 12:50 Oxygen Delivery Room Air 05/25/24 12:50 Temperature 97 F L 05/25/24 12:50 Pulse Rate 85 05/25/24 12:50 Respiratory Rate 24 H 05/25/24 12:50 Blood Pressure 158/79 H 05/25/24 12:50 Pulse Oximetry 98 05/25/24 12:50 Oxygen Delivery Room Air 05/25/24 12:50 Reviewed Medical Decision Making MDM Narrative Medical decision making narrative: Patient sitting comfortably in exam room. Nontoxic, vitals stable. Patient in no acute distress Patient presents wanting a prescription for steroids to help reduce her pain. Reports she has been unable to get a hold of her doctor. Unable to see kidney functions. Recently on oral steroid, reports that she is scheduled for a steroid injection in her knee in the next 1-2 weeks. Discussed risks with patient. Will prescribe Lidoderm patch to help with discomfort in the shoulder. Encouraged patient to call Ortho or primary care provider see if they can move up the steroid injection Patient appropriate for outpatient treatment and follow-up Discharge instructions reviewed with patient, as well as provided in writing per nursing staff. The instructions also include specific and strict return/GO TO THE ER as well as f/u information. All questions have been answered, and the patient deny any further questions with discharge and discharge plan. Some parts of this dictation were generated by voice recognition software and may contain typographical and/or grammatical inaccuracies. Differential Diagnosis Differential Diagnosis: Arthritis Medical Records Medical records reviewed: Yes I reviewed the external patient's medical records. Vital Signs Vital Signs: Vital Signs Temperature 97 F L 05/25/24 12:50 Pulse Rate 85 05/25/24 12:50 Respiratory Rate 24 H 05/25/24 12:50 Blood Pressure 158/79 H 05/25/24 12:50 Pulse Oximetry 98 05/25/24 12:50 Oxygen Delivery Room Air 05/25/24 12:50 Temperature 97 F L 05/25/24 12:50 Pulse Rate 85 05/25/24 12:50 Respiratory Rate 24 H 05/25/24 12:50 Blood Pressure 158/79 H 05/25/24 12:50 Pulse Oximetry 98 05/25/24 12:50 Oxygen Delivery Room Air 05/25/24 12:50 Reviewed Lab Data Lab results reviewed: Yes I reviewed the patient's lab results. Labs: Reviewed Critical Care Time Critical Care Time Critical Care Time: No Discharge Plan Discharge Clinical Impression: Chronic shoulder pain, Chronic knee pain Patient Disposition: Home, Self-Care Condition: Stable Instructions: Antibiotic Form, Arthritis (ED) Additional Instructions: Try applying the Lidoderm patch to your shoulder. Using topical such as Biofreeze, Brad-Inman, Aspercreme may also help. You can also try arthritis cream such as Valtorin Follow-up is already scheduled for your knee injection Follow-up with your primary care provider For worsening symptoms go directly to emergency room Patient Language: Ethiopian Prescriptions: New lidocaine [Lidoderm] 5 % adhesive patch,medicated 1 patch topical DAILY Qty: 15 0RF Rx Instructions: leave on most painful area for up to 12 hrs No Action potassium chloride 10 mEq capsule, extended release 10 meq PO BID metoprolol succinate 100 mg tablet extended release 24 hr 100 mg PO DAILY albuterol sulfate 2.5 mg /3 mL (0.083 %) solution for nebulization 2.5 mg INHALATION Q4H PRN (Reason: shortness of breath or wheezing) Qty: 75 0RF ipratropium-albuterol 0.5 mg-3 mg(2.5 mg base)/3 mL solution for nebulization 3 ml inhalation Q6H PRN (Reason: shortness of breath) Qty: 15 0RF tiotropium bromide [Spiriva with HandiHaler] 18 mcg Capsule, W/Inhalation Device 1 cap INHALATION DAILY PRN (Reason: sob) cetirizine 10 mg tablet 10 mg PO DAILY ergocalciferol (vitamin D2) 1,250 mcg (50,000 unit) capsule 1,250 mcg PO [id number] aspirin [Di Low Dose Aspirin] 81 mg Tablet,Delayed Release (Dr/Ec) 81 mg PO DAILY losartan-hydrochlorothiazide 100-25 mg tablet 1 tablet PO DAILY albuterol sulfate 90 mcg/actuation HFA aerosol inhaler 2 puff INHALATION QID PRN (Reason: shortness of breath or wheezing) Qty: 8 0RF benzonatate 200 mg capsule 200 mg PO TID PRN (Reason: cough) Qty: 20 0RF Eliquis 5 mg tablet 5 mg PO BID losartan 100 mg tablet 100 mg PO DAILY Follow-up/Referrals: Kelly,Ashu Moran MD [Primary Care Provider] - 2 Weeks ([facility] care follow up) Time of Disposition: 13:55
== END 2024-05-25 14:07 | disposition home or self-care (01) ==
PROVIDERS: Emergency Provider Nurse Practitioner; PCP Internal Medicine
DX: G89.29 Other chronic pain (principal); M25.511 Pain in right shoulder; M25.561 Pain in right knee; I10 Essential (primary) hypertension; M19.90 Unspecified osteoarthritis, unspecified site; J45.909 Unspecified asthma, uncomplicated; I25.2 Old myocardial infarction; Z79.82 Long term (current) use of aspirin; Z79.01 Long term (current) use of anticoagulants
CPT/HCPCS: 99213; G0463